=== PATIENT | male | born 1980 | race Caucasian/White ===

== ENCOUNTER 2018-11-25 03:26 | Emergency (ER) | payer OTHER ==
[~2018-11-25] VITALS: Ht 157.5 cm; Wt 65.9 kg
--- NOTE | 2018-11-25 04:22 | REPVR ---
EXAM: CT Head Without Contrast EXAM DATE/TIME: 11/25/2018 3:57 AM CLINICAL HISTORY: 38 years old, male; Injury or trauma; Fall; Initial encounter; Blunt trauma (contusions or hematomas); With loss of consciousness; Not specified; Additional info: Loc TECHNIQUE: Imaging protocol: Computed tomography images of the head without contrast. Radiation optimization: All CT scans at this facility use at least one of these dose optimization techniques: automated exposure control; mA and/or kV adjustment per patient size (includes targeted exams where dose is matched to clinical indication); or iterative reconstruction. COMPARISON: No relevant prior studies available. FINDINGS: Brain: Evaluation limited by streak and motion artifact. No acute intracranial hemorrhage or mass effect as visualized. No discrete geographic area of hypoattenuation to suggest territorial infarct identified at this time. Ventricles: No ventriculomegaly. Bones/joints: No displaced fracture. Sinuses: Visualized sinuses are unremarkable. No fluid levels. Mastoid air cells: Visualized mastoid air cells are well aerated. No mastoid effusion. Soft tissues: Subcutaneous emphysema partially imaged in the right temporal soft tissues. IMPRESSION: Streak and motion artifact limit evaluation. No definite evidence of acute intracranial abnormality as visualized. Subcutaneous emphysema partially imaged in the right temporal soft tissues. Electronically signed by: Thong Hudson On 11/25/2018 04:22:03 AM
--- NOTE | 2018-11-25 04:28 | REPVR ---
EXAM: CT Cervical Spine Without Contrast EXAM DATE/TIME: 11/25/2018 3:57 AM CLINICAL HISTORY: 38 years old, male; Injury or trauma; Fall; Initial encounter; Blunt trauma TECHNIQUE: Imaging protocol: Computed tomography images of the cervical spine without contrast. Coronal and sagittal reformatted images were created and reviewed. Radiation optimization: All CT scans at this facility use at least one of these dose optimization techniques: automated exposure control; mA and/or kV adjustment per patient size (includes targeted exams where dose is matched to clinical indication); or iterative reconstruction. COMPARISON: No relevant prior studies available. FINDINGS: Vertebrae: No grossly displaced fractures or subluxations. Mild multilevel degenerative changes characterized by varying degrees of disc space narrowing and endplate osteophytosis. Straightening of the cervical curvature may be secondary to patient positioning and/or muscular spasm. Alignment is otherwise grossly preserved. Discs/Spinal canal/Neural foramina: Minimal/mild narrowing of the bony spinal canal at C5-C6 and C6-C7 due to disc osteophyte complexes. Soft tissues: Unremarkable. Lungs: Lung apices are normal. IMPRESSION: No displaced fractures or subluxations. Degenerative changes as above. Electronically signed by: Thong Hudson On 11/25/2018 04:28:13 AM
--- NOTE | 2018-11-25 04:50 | REPVR ---
EXAM: CT Maxillofacial Without Contrast EXAM DATE/TIME: 11/25/2018 4:31 AM CLINICAL HISTORY: 38 years old, male; Injury or trauma; Fall; Initial encounter; Blunt trauma (contusions or hematomas); Orbit/periorbital; Right; Additional info: Facial trauma TECHNIQUE: Imaging protocol: Computed tomography images of the face without contrast. Coronal and sagittal reformatted images were created and reviewed. Radiation optimization: All CT scans at this facility use at least one of these dose optimization techniques: automated exposure control; mA and/or kV adjustment per patient size (includes targeted exams where dose is matched to clinical indication); or iterative reconstruction. COMPARISON: No relevant prior studies available. FINDINGS: Orbits: The globes appear intact. Sinuses: No air-fluid levels. Bones/joints: No grossly displaced fractures or dislocations are noted. Soft tissues: Right forehead and inferior periorbital lacerations. Right periorbital soft tissue swelling with surrounding subcutaneous emphysema which tracks into the right temporal soft tissues. IMPRESSION: Right facial soft tissue injuries as above. No grossly displaced fractures or dislocations noted. Electronically signed by: Thong Hudson On 11/25/2018 04:50:09 AM
[2018-11-25] MEDS ORDERED: LIDOCAINE W/EPINEPHRINE 1% 20ML VIAL SC ONE (05:00)
[2018-11-25] MEDS ORDERED: IBUPROFEN 800 MG TAB PO ONE (06:30)
[2018-11-25] MEDS ORDERED: KEFL500C17 PO (07:38)
[2018-11-25] MEDS ORDERED: BACIOIN5 OP (07:38)
[2018-11-25] MEDS ORDERED: ADACEL/BOOSTRIX VACCINE (DIPHTH/PERTUSS/ACELL/TETANUS)0.5ML SYR (90715) IM ONE (07:45)
[2018-11-25 08:19] VITALS: BP 126/58
--- NOTE | 2018-11-27 10:40 | ER ---
DATE OF CONSULTATION/PROCEDURE: 11/25/2018 PREOPERATIVE DIAGNOSIS: Partial thickness right lower eyelid laceration without orbital fat herniation. POSTOPERATIVE DIAGNOSIS: Partial thickness right lower eyelid laceration without orbital fat herniation. PROCEDURE: Bedside closure of the right lower eyelid defect with #6-0 nylon interrupted sutures. SURGEON: Dr. Graham Ramsey. ANESTHESIA: Local 1% lidocaine with epinephrine. COMPLICATIONS: None. POSTOPERATIVE CONDITION: Stable. INDICATION FOR SURGERY: Right lower eyelid laceration. After discussing with the patient and family members in the room, the decision was made to perform the procedure at the bedside in the emergency department. The patient was agreeable to this. The areas was vigorously irrigated with sterile balance salt solution (BSS) and then was prepped and draped with standard sterile precautions with 10% Iodine the surface of the skin. After prepped and draping, careful inspection of the laceration revealed no foreign bodies within the defect or presence of orbital fat. At that time, 1% lidocaine with epinephrine was injected into the defect to obtain appropriate anesthesia. Approximately 5 mL was used. Two interrupted #6-0 nylon sutures were placed at the most medial laceration are and then temporal laceration to approximate the wound in a careful fashion. Additional #6-0 nylon interrupted sutures were placed until the defect was closed appropriately. About two-thirds of the way from medial to temporal, there was obviously more shearing injury and loss of tissue. Extra precaution was made in this area to not make the sutures too tight, stopping to check appropriate eyelid closure, which was achieved. After placing sutures to close the eyelid defect, the area was inspected carefully to ensure that all of the defect was closed. A wet and then dry 4 x 4 was used to clean the suture site. Antibiotic ointment was placed. The patient was discharged with instructions to take oral antibiotics by mouth for approximately 10 days as well as topical antibiotic to the surface of the incision site for the next 7 days. The patient was instructed when return back to his area of residence, approximately 60 miles from where this injury occurred, he should have the sutures removed in approximately 10 days and return to the emergency room if there are any changes, fevers, or eyelid swelling. JESSE
--- NOTE | 2018-11-27 14:03 | ER ---
DATE OF CONSULTATION: 11/25/2018 CHIEF COMPLAINT: Eye trauma, right eyelid. This is a 38-year-old male [place], may have been drinking heavily. The patient left the common area and was urinating over the retention wall that was about 1-2 feet in height. The patient did not recall what happened next, but the next thing he realized is he had fallen over the wall and smashed his right side of face on some rocks on the other side of the wall. The patient had an immediate right lower eyelid bleeding and as well from his forehead. There was some mild blurry vision which since has resolved on his arrival to the emergency department. The patient denies any visual changes. He denies any discharge, floaters, or flashes. He is accompanied by his sister and [id number]. PAST MEDICAL HISTORY: The patient denies. PAST OCULAR HISTORY: The patient denies. SOCIAL HISTORY: Alcohol use. MEDICATIONS: The patient denies. REVIEW OF SYSTEMS: Right lower eyelid pain and right-sided headache. The physical examination showed uncorrected visual acuity of approximately 20/25 in the right eye and 20/25 in the left eye. Full extraocular muscles without entrapment or restriction. Confrontation to visual field was within normal limits. There is no APD. Bedside examination: Lids, lashes, and adnexa showed an approximately 5-6 cm right lower eyelid laceration that did not involve the eyelid margin. The orbital fat was not exposed. There was presence of a sheering-type injury, and musculature of the orbicularis oculi muscle was visible. There was no perforation of the orbital septum. The conjunctiva and sclera is white and quiet. The cornea is clear without abrasion or ulcer or infiltration. The anterior chamber is deep and quiet both eyes (OU). The lens is within normal limits. Pupil is round, and no peaking was visible. Dilated fundus examination was deferred at this time. ASSESSMENT AND PLAN: The patient has a partial thickness right lower eyelid laceration without orbital fat herniation of approximately 5-6 cm in a oval to [id number] laceration. CT examination revealed no orbital fracture or entrapment, and the decision was made after discussing with the patient who was mentating appropriately to close the eyelid defect at the bedside. The patient was agreeable, as well as the family members who were in the room at that time. Please see operative procedure note, which will be dictated, as well. MTDD
== END 2018-11-25 08:20 | disposition home or self-care (01) ==
LOC: M ED 03:26
DX: S01.81XA Laceration without foreign body of other part of head, initial encounter (principal); S01.111A Laceration without foreign body of right eyelid and periocular area, initial encounter; W17.89XA Other fall from one level to another, initial encounter; Y92.89 Other specified places as the place of occurrence of the external cause; F10.229 Alcohol dependence with intoxication, unspecified; F17.210 Nicotine dependence, cigarettes, uncomplicated; F12.20 Cannabis dependence, uncomplicated